=== PATIENT | female | born 1995 | race Caucasian/White ===

== ENCOUNTER 2019-10-07 11:11 | Emergency (ER) | payer OTHER ==
[~2019-10-07] VITALS: Ht 175.3 cm; Wt 86.2 kg
[2019-10-07] MEDS ORDERED: MICROGESTIN FE1 EACH PO (11:21)
[2019-10-07] MEDS ORDERED: ZESTRIL10 MG PO (12:25)
[2019-10-07 12:30] VITALS: BP 142/87
[2019-10-07 13:03] LABS: HEMATOCRIT 40.7 % (37.0-47.0); HEMOGLOBIN 13.8 gm/dL (12.0-15.0); MCH 30.5 pg (26.0-34.0); MCHC 33.9 g/dL (28.0-37.0); MCV 89.8 fL (80.0-100.0); RBC 4.54 mil/uL (4.20-5.00); RDW 12.1 % (10.5-14.5); WBC 6.3 thou/uL (4.0-11.0)
[2019-10-07 13:07] LABS: CALCIUM 9.8 mg/dL (8.5-10.1); CREATININE 0.7 mg/dL (0.6-1.0); POTASSIUM 3.7 mmol/L (3.5-5.1)
--- NOTE | 2019-10-07 13:38 | EKG ---
[facility] [place] [address] ELECTROCARDIOGRAM REPORT Name: MARCOS LEE Room #: [facility].#: [id number] Admission: 10/07/19 Attend Phys: Discharge: Date of : [birth year] Report #: [id number] THIS REPORT FOR: cc: FAM - No family physician/PCP FAM - No family physician/PCP Dallin Melendez MD ~ THIS REPORT FOR: //name// [facility] ED Test Date: 2019-10-07 Test Time: 11:42:49 Pat Name: MARCOS LEE Department: Room: Gender: F Singer Songwriter: : 1995 Requested By: Sultana Austin Order Number: [id number] MD: Dallin Melendez Measurements Intervals [place] Rate: 81 P: 47 [place]: 134 QRS: 33 QRSD: 80 T: -10 QT: 364 QTc: 423 Interpretive Statements Sinus rhythm Borderline T abnormalities, inferior leads No previous ECG available for comparison Electronically Signed On 10-07-2019 13:38:25 CDT by Dallin Melendez [email or web address] <ELECTRONICALLY SIGNED> By: Dallin Melendez MD 10/07/19 1338 1142 1142 Dallin Melendez MD /STACIE
== END 2019-10-07 12:30 | disposition home or self-care (01) ==
LOC: ER 11:11
PROVIDERS: Emergency Medicine
DX: I10 Essential (primary) hypertension (principal); R42 Dizziness and giddiness; Z79.899 Other long term (current) drug therapy

== ENCOUNTER → 2019-10-15 | Outpatient (CLI) | payer OTHER ==
[~2019-10-15] MED LIST: MICROGESTIN FE1 EACH PO; ZESTRIL10 MG PO
[2019-10-15 11:56] LABS: CHOLESTEROL 222 mg/dL (<200); HDL CHOLESTEROL 76 mg/dL (>40); LDL CHOLESTEROL 109 mg/dL (<100); TC:HDL 2.9 Ratio (Not establshd); TRIGLYCERIDE 189 mg/dL (<150); VLDL 38 mg/dL (<40)
[2019-10-15 11:58] LABS: SERUM ASSESSMENT Clear
== END ==
LOC: LABMALL 10:47
PROVIDERS: ATTEND Family Medicine
DX: I10 Essential (primary) hypertension (principal); E55.9 Vitamin D deficiency, unspecified